=== PATIENT | male | born 1950 | race Caucasian/White ===

== ENCOUNTER → 2018-12-17 | Outpatient (CLI) | payer MEDICARE, BC, OTHER, SELFPAY | PROVIDERS: PCP Family Medicine; Referring Provider Internal Medicine Endocrinology, Diabetes & Metabolism; Visit Provider Family Medicine | DX: E78.5 Hyperlipidemia, unspecified (principal); E11.65 Type 2 diabetes mellitus with hyperglycemia; I10 Essential (primary) hypertension; R35.1 Nocturia | CPT/HCPCS: 36415; 80048; 80061; 80076; 81001; 82043; 82570; 84153; 84443 ==

== ENCOUNTER 2019-06-15 15:02 | Outpatient (CLI) | payer MEDICARE, BC, OTHER, SELFPAY ==
--- NOTE | ~2019-06-15 | CT_ITS ---
EXAMINATION: CT brain wo con DATE: 06/15/2019 15:24 INDICATION: Dizziness and giddiness TECHNIQUE: Computed tomography (CT) of the head was performed without intravenous contrast. The dose- length product was 605.33 mGy-cm. The mA was adjusted according to patient size. Iterative reconstruc tion technique was employed. COMPARISON: None FINDINGS: No acute intracranial hemorrhage, infarction, mass or mass effect. No ventriculomegaly or m idline shift. Basilar cisterns are patent. Paranasal sinuses and mastoids are pneumatized. No depress ed skull fractures. Midline sagittal images are unremarkable. There is intracranial atherosclerosis. IMPRESSION: 1. No acute intracranial abnormality. Reviewed, dictated and finalized at location A.
== END 2019-06-15 15:03 | disposition home or self-care (01) ==
LOC: ANHIMG 15:07
PROVIDERS: PCP Family Medicine; Visit Provider Family Medicine
DX: R42 Dizziness and giddiness (principal); G44.52 New daily persistent headache (NDPH)
CPT/HCPCS: 70450

== ENCOUNTER 2020-01-18 06:54 | Outpatient (NON) | payer MEDICARE, BC, OTHER, SELFPAY ==
[2020-01-18 23:36] LABS: SARS-CoV-2 RNA PCR Negative
== END 2020-01-18 06:55 ==
LOC: ANHCOVIDDT 07:00
PROVIDERS: PCP Family Medicine; Visit Provider Family Medicine
DX: R51.9 Headache, unspecified (principal); Z20.828 Contact with and (suspected) exposure to other viral communicable diseases
CPT/HCPCS: 87635; C9803; U0003

== ENCOUNTER → 2020-03-13 14:42 | Outpatient (CLI) | payer MEDICARE, BC, OTHER, SELFPAY ==
--- NOTE | ~2020-03-13 | XR_ITS ---
XR tibia fibula RT 2V DATE: 03/13/2020 14:57 INDICATION: Cellulitis. Sore on anterior lower leg. TECHNIQUE: AP and lateral views COMPARISON: None FINDINGS: There is soft tissue swelling along the anterior aspect of the right lower leg but no under lying fracture, dislocation, periosteal reaction or bone destruction throughout the tibia or fibula. Arterial calcifications are noted. IMPRESSION: Anterior lower leg soft tissue swelling; no periosteal reaction or bone destruction Reviewed, dictated and finalized at location A. GENCY ROOM RN
== END ==
PROVIDERS: PCP Family Medicine; Visit Provider Family Medicine
DX: L03.90 Cellulitis, unspecified (principal); M79.89 Other specified soft tissue disorders
CPT/HCPCS: 73590

== ENCOUNTER 2020-04-11 09:56 | Outpatient (CLI) | payer MEDICARE, BC, OTHER, SELFPAY ==
[2020-04-11 10:33] LABS: Potassium 4.2 mmol/L (3.4-5.0)
[2020-04-11 10:58] LABS: Anion Gap 5 mmol/L (8-16); Blood Urea Nitrogen 15 mg/dL (9-20); Calcium 8.9 mg/dL (8.4-10.2); Carbon Dioxide 32 mmol/L (22-30); Chloride 101 mmol/L (98-107); Estimated Glomerular Filt Rate 60; Glucose 238 mg/dL (75-110); Sodium 138 mmol/L (137-145)
== END 2020-04-11 09:57 | disposition home or self-care (01) ==
LOC: ANHSURGERY 10:02
PROVIDERS: Anesthesiology; PCP Family Medicine; Visit Provider Plastic Surgery
DX: E11.65 Type 2 diabetes mellitus with hyperglycemia (principal); Z79.4 Long term (current) use of insulin
CPT/HCPCS: 36415; 80048

== ENCOUNTER → 2020-04-15 01:27 | Outpatient (CLI) | payer MEDICARE, BC, OTHER, SELFPAY ==
[2020-04-15 23:34] LABS: SARS-CoV-2 RNA PCR Negative
== END ==
PROVIDERS: PCP Family Medicine; Visit Provider Plastic Surgery
DX: Z01.812 Encounter for preprocedural laboratory examination (principal); Z20.822 Contact with and (suspected) exposure to COVID-19
CPT/HCPCS: C9803; U0003; U0005

== ENCOUNTER 2020-04-19 00:58 | Day surgery (SDC) | payer MEDICARE, BC, OTHER, SELFPAY ==
[2020-04-10 13:11] VITALS: BMI 28.6
--- NOTE | 2020-04-18 13:41 | WPDANESEPPF ---
Anes - Initial Pre Proc Eval Procedure: Operation Date: 04/19/20 07:30 Proposed Procedures p Excision Squamous Cell Carcinoma Right Anterior Leg with Frozen Section, Possible Full Thickness Skin Graft - Rufino Ingram MD Date/Time: 04/18/20 13:41 Surgeon: Rufino Ingram MD Pre Op Diagnosis: sq cell CA right anterior leg Patient Data Age: 69 Gender: M Height: 5 ft 9 in Weight: 88 kg Allergies Allergy/AdvReac Type Severity Reaction Status Date / Time exenatide [From Bydureon] Allergy Nausea and Verified 04/10/20 12:41 Vomiting Home Medications Medication Instructions Recorded Confirmed Type empagliflozin 10 mg tablet 25 mg PO QAM 12/18/18 04/10/20 History magnesium oxide 400 mg (241.3 mg 400 mg PO DAILY 12/18/18 04/10/20 History magnesium) tablet blood sugar diagnostic #10 each 04/22/19 03/13/20 History insulin aspart U-100 100 unit/mL 15 unit SUB-Q TID 04/22/19 04/10/20 History (3 mL) subcutaneous pen insulin degludec 100 unit/mL (3 45 unit SUB-Q HS ml 04/22/19 04/10/20 History mL) subcutaneous pen famotidine 20 mg tablet 20 mg PO BID #60 tablet 06/28/19 04/10/20 Rx nitroglycerin 0.4 mg sublingual 0.4 mg SUBLINGUAL Q5M PRN #60 10/20/19 04/10/20 Rx tablet tablet amitriptyline 25 mg tablet 25 mg PO . q.h.s. #90 tablet 10/27/19 04/10/20 Rx pen needle, diabetic 33 gauge x #100 each 11/17/19 03/13/20 Rx 1/4 bupropion HCl 300 mg 24 hr tablet, 300 mg PO QAM #90 tablet 12/23/19 04/10/20 Rx extended release propranolol 120 mg 120 mg PO DAILY #90 cap 02/02/20 04/10/20 Rx capsule,extended release 24 hr escitalopram oxalate 10 mg tablet 5 mg PO DAILY #90 tablet 03/01/20 04/10/20 Rx clopidogrel 75 mg tablet See Rx Instructions .ROUTE 03/23/20 04/10/20 Rx .COMPLEX #90 tablet aspirin [Adult Low Dose Aspirin] 81 mg PO DAILY 04/10/20 04/10/20 History atorvastatin 40 mg PO DAILY 04/10/20 04/10/20 History cholecalciferol (vitamin D3) 25 mcg PO DAILY 04/10/20 04/10/20 History clonazepam 0.5 mg PO HS 04/10/20 04/10/20 History cyanocobalamin (vitamin B-12) 1,000 mcg PO DAILY 04/10/20 04/10/20 History glipizide 10 mg PO QAM 04/10/20 04/10/20 History lisinopril 2.5 mg PO QPM 04/10/20 04/10/20 History PMFSH Past Medical History Medical History (Updated 03/13/20 @ 14:44 by Marlon Last MD) Acute pain of right shoulder Anxiety disorder, unspecified Atherosclerotic heart disease of [place] coronary artery without angina pectoris Cellulitis Chronic low back pain without sciatica Chronic rhinitis Colon polyps Controlled diabetes mellitus with hyperglycemia, with long-term current use of insulin Diabetic peripheral neuropathy Essential (primary) hypertension Family history of malignant neoplasm of colon in first degree relative diagnosed when younger than 60 years of age Gastro-esophageal reflux disease without esophagitis Headache Insomnia Major depressive disorder, single episode, unspecified Medicare annual wellness visit, subsequent Mixed hyperlipidemia Nocturia Osteoarthritis involving multiple joints on both sides of body Pigmented skin lesion of suspected malignant nature Tremor Family History Family History Mother Diabetes mellitus Family history of malignant neoplasm Father Patient's father is Family history of cardiovascular disease Social History Social History Smoking packs per day: 1 Smoking cigarettes per day: 20.0 Years smoked: 10 Smoking pack-years: 10.00 Smoking status: Former smoker Tobacco type: cigarettes Smoking end date: 03/08/02 Alcohol intake: current Substance use: never Substance use type: does not use Spiritual care concerns: No Anes - Eval Final PreProcedure Day of Procedure 04/18/20 13:41 Informed Consent: The patient's anesthetic plan and its attendant risks and benefits were discussed with the nancy
--- NOTE | 2020-04-18 15:39 | WPDANESEPPF ---
Anes - Initial Pre Proc Eval Procedure: Operation Date: 04/19/20 07:30 Proposed Procedures p Excision Squamous Cell Carcinoma Right Anterior Leg with Frozen Section, Possible Full Thickness Skin Graft - Rufino Ingram MD Date/Time: 04/18/20 15:39 Surgeon: Rufino Ingram MD Pre Op Diagnosis: sq cell CA right anterior leg Patient Data Age: 69 Gender: M Height: 1.75 m Weight: 88 kg Allergies Allergy/AdvReac Type Severity Reaction Status Date / Time exenatide [From Bydureon] Allergy Nausea and Verified 04/10/20 12:41 Vomiting Home Medications Medication Instructions Recorded Confirmed Type empagliflozin 10 mg tablet 25 mg PO QAM 12/18/18 04/10/20 History magnesium oxide 400 mg (241.3 mg 400 mg PO DAILY 12/18/18 04/10/20 History magnesium) tablet blood sugar diagnostic #10 each 04/22/19 03/13/20 History insulin aspart U-100 100 unit/mL 15 unit SUB-Q TID 04/22/19 04/10/20 History (3 mL) subcutaneous pen insulin degludec 100 unit/mL (3 45 unit SUB-Q HS ml 04/22/19 04/10/20 History mL) subcutaneous pen famotidine 20 mg tablet 20 mg PO BID #60 tablet 06/28/19 04/10/20 Rx nitroglycerin 0.4 mg sublingual 0.4 mg SUBLINGUAL Q5M PRN #60 10/20/19 04/10/20 Rx tablet tablet amitriptyline 25 mg tablet 25 mg PO . q.h.s. #90 tablet 10/27/19 04/10/20 Rx pen needle, diabetic 33 gauge x #100 each 11/17/19 03/13/20 Rx 1/4 bupropion HCl 300 mg 24 hr tablet, 300 mg PO QAM #90 tablet 12/23/19 04/10/20 Rx extended release propranolol 120 mg 120 mg PO DAILY #90 cap 02/02/20 04/10/20 Rx capsule,extended release 24 hr escitalopram oxalate 10 mg tablet 5 mg PO DAILY #90 tablet 03/01/20 04/10/20 Rx clopidogrel 75 mg tablet See Rx Instructions .ROUTE 03/23/20 04/10/20 Rx .COMPLEX #90 tablet aspirin [Adult Low Dose Aspirin] 81 mg PO DAILY 04/10/20 04/10/20 History atorvastatin 40 mg PO DAILY 04/10/20 04/10/20 History cholecalciferol (vitamin D3) 25 mcg PO DAILY 04/10/20 04/10/20 History clonazepam 0.5 mg PO HS 04/10/20 04/10/20 History cyanocobalamin (vitamin B-12) 1,000 mcg PO DAILY 04/10/20 04/10/20 History glipizide 10 mg PO QAM 04/10/20 04/10/20 History lisinopril 2.5 mg PO QPM 04/10/20 04/10/20 History PMF Past Medical History Medical History (Updated 04/18/20 @ 15:41 by Antonio Tellez MD) Acute pain of right shoulder Anxiety disorder, unspecified Atherosclerotic heart disease of [place] coronary artery without angina pectoris CAD (coronary artery disease) Cellulitis Chronic low back pain without sciatica Chronic rhinitis Colon polyps Controlled diabetes mellitus with hyperglycemia, with long-term current use of insulin Diabetic peripheral neuropathy Essential (primary) hypertension Family history of malignant neoplasm of colon in first degree relative diagnosed when younger than 60 years of age Gastro-esophageal reflux disease without esophagitis Headache Insomnia Major depressive disorder, single episode, unspecified Medicare annual wellness visit, subsequent Mixed hyperlipidemia Nocturia Osteoarthritis involving multiple joints on both sides of body Pigmented skin lesion of suspected malignant nature Tremor Surgical History Surgical History (Updated 04/18/20 @ 15:41 by Antonio Tellez MD) History of coronary artery stent placement S/P CABG (coronary artery bypass graft) Family History Family History Mother Diabetes mellitus Family history of malignant neoplasm Father Patient's father is Family history of cardiovascular disease Social History Social History Smoking packs per day: 1 Smoking cigarettes per day: 20.0 Years smoked: 10 Smoking pack-years: 10.00 Smoking status: Former smoker Tobacco type: cigarettes Smoking end date: 03/08/02 Alcohol intake: current Substance use: never Substance use type: does not use Spiritual care
--- NOTE | 2020-04-19 06:36 | WPDANESEPPF ---
Anes - Initial Pre Proc Eval Procedure: Operation Date: 04/19/20 07:30 Proposed Procedures p Excision Squamous Cell Carcinoma Right Anterior Leg with Frozen Section, Possible Full Thickness Skin Graft - Rufino Ingram MD Date/Time: 04/19/20 06:36 Surgeon: Rufino Ingram MD Pre Op Diagnosis: sq cell CA right anterior leg Patient Data Age: 69 Gender: M Height: 5 ft 9 in Weight: 88 kg Allergies Allergy/AdvReac Type Severity Reaction Status Date / Time exenatide [From Bydureon] Allergy Nausea and Verified 04/10/20 12:41 Vomiting Home Medications Medication Instructions Recorded Confirmed Type empagliflozin 10 mg tablet 25 mg PO QAM 12/18/18 04/10/20 History magnesium oxide 400 mg (241.3 mg 400 mg PO DAILY 12/18/18 04/10/20 History magnesium) tablet blood sugar diagnostic #10 each 04/22/19 03/13/20 History insulin aspart U-100 100 unit/mL 15 unit SUB-Q TID 04/22/19 04/10/20 History (3 mL) subcutaneous pen insulin degludec 100 unit/mL (3 45 unit SUB-Q HS ml 04/22/19 04/10/20 History mL) subcutaneous pen famotidine 20 mg tablet 20 mg PO BID #60 tablet 06/28/19 04/10/20 Rx nitroglycerin 0.4 mg sublingual 0.4 mg SUBLINGUAL Q5M PRN #60 10/20/19 04/10/20 Rx tablet tablet amitriptyline 25 mg tablet 25 mg PO . q.h.s. #90 tablet 10/27/19 04/10/20 Rx pen needle, diabetic 33 gauge x #100 each 11/17/19 03/13/20 Rx 1/4 bupropion HCl 300 mg 24 hr tablet, 300 mg PO QAM #90 tablet 12/23/19 04/10/20 Rx extended release propranolol 120 mg 120 mg PO DAILY #90 cap 02/02/20 04/10/20 Rx capsule,extended release 24 hr escitalopram oxalate 10 mg tablet 5 mg PO DAILY #90 tablet 03/01/20 04/10/20 Rx clopidogrel 75 mg tablet See Rx Instructions .ROUTE 03/23/20 04/10/20 Rx .COMPLEX #90 tablet aspirin [Adult Low Dose Aspirin] 81 mg PO DAILY 04/10/20 04/10/20 History atorvastatin 40 mg PO DAILY 04/10/20 04/10/20 History cholecalciferol (vitamin D3) 25 mcg PO DAILY 04/10/20 04/10/20 History clonazepam 0.5 mg PO HS 04/10/20 04/10/20 History cyanocobalamin (vitamin B-12) 1,000 mcg PO DAILY 04/10/20 04/10/20 History glipizide 10 mg PO QAM 04/10/20 04/10/20 History lisinopril 2.5 mg PO QPM 04/10/20 04/10/20 History Patient hx anesthesia problems: none Family hx anesthesia problems: none PMFSH Past Medical History Medical History Acute pain of right shoulder Anxiety disorder, unspecified Atherosclerotic heart disease of [place] coronary artery without angina pectoris CAD (coronary artery disease) Cellulitis Chronic low back pain without sciatica Chronic rhinitis Colon polyps Controlled diabetes mellitus with hyperglycemia, with long-term current use of insulin Diabetic peripheral neuropathy Essential (primary) hypertension Family history of malignant neoplasm of colon in first degree relative diagnosed when younger than 60 years of age Gastro-esophageal reflux disease without esophagitis Headache Insomnia Major depressive disorder, single episode, unspecified Medicare annual wellness visit, subsequent Mixed hyperlipidemia Nocturia Osteoarthritis involving multiple joints on both sides of body Pigmented skin lesion of suspected malignant nature Tremor Surgical History Surgical History History of coronary artery stent placement S/P CABG (coronary artery bypass graft) Family History Family History Mother Diabetes mellitus Family history of malignant neoplasm Father Patient's father is Family history of cardiovascular disease Social History Social History Smoking packs per day: 1 Smoking cigarettes per day: 20.0 Years smoked: 10 Smoking pack-years: 10.00 Smoking status: Never smoker Tobacco type: cigarettes Smoking end date: 02/17/02 Alcohol int
[2020-04-19 07:01] LABS: Glucose Point of Care 156 (65-105)
--- NOTE | 2020-04-19 07:11 | WPDHPUPDATE1 ---
History and Physical Update Update Date/Time: 04/19/20 07:11 History and Physical has been reviewed, including an updated exam of the patient. There are NO changes in the patient's condition. Risks, benefits, and alternatives have been discussed and questions answered. Patient agrees to proceed with procedure.
[2020-04-19] MEDS: LACTATED RINGERS 1,000 ML 30 ML IV CONT (07:20)
[2020-04-19 07:38] VITALS: BP 100/66; PULSE 71; RESP 20; TEMP 36.4; O2SAT 97
[2020-04-19] MEDS: LIDO 1%/EPINEPHRINE 1:100,000 50 ML VIAL INFILTRATE (07:43)
--- NOTE | 2020-04-19 08:25 | SUR.OPER ---
Eb l=1ml
[2020-04-19 08:28] VITALS: BP 111/60; PULSE 94; RESP 15; O2SAT 94
[2020-04-19 08:49] LABS: Glucose Point of Care 154 (65-105)
[2020-04-19 08:50] VITALS: BP 106/60; PULSE 63; RESP 20
--- NOTE | 2020-04-19 08:52 | PM.OP ---
Procedure Note - Brief Procedure Note - Brief Date of procedure: 04/19/20 Pre-op diagnosis: sq cell CA right anterior leg Post-op diagnosis: same Procedure performed: 2 cm excision of SCCA right anterior leg with intermediate repair 6 cm. Anesthesia: GLMA Surgeon: Rufino Ingram MD Estimated blood loss (mL): 1 Drains: No Packing: No Pathology: yes Complications: No immediate complications Condition: stable Disposition: same day
--- NOTE | 2020-04-19 08:53 | PM.PROC ---
Procedure Note - Detailed Date of procedure: 04/19/20 Pre-op diagnosis: sq cell CA right anterior leg Post-op diagnosis: same Procedure performed: 2 cm excision of squamous cell carcinoma of the right anterior leg with frozen section and intermediate repair 6 cm Description of procedure: The site on the patient's leg was marked in the holding area. He was taken to the operating room and placed supine on the operating table. A time-out was held and confirmed. He was given sedation anesthetic. The right lower extremity was prepped and draped in usual fashion including the thigh. The site on the leg was marked for excision and locally infiltrated with 1% lidocaine with epinephrine. No tourniquet was utilized. The excision was carried out and the specimen sent to pathology marked at the superior side for 12 o'clock. The pathologist confirmed the diagnosis and reports margins are free. The wound margins were undermined approximately a cm all sides. The wound was closed without difficulty using 3-0 intradermal Vicryl sutures and 5 0 nylon in the skin. Standing cones removed both ends. Small bandage was applied. He is being discharged with instructions in wound care and follow-up a prescription for hydrocodone 5/325 5 was sent to his pharmacy. Surgeon: Rufino Ingram MD
[2020-04-19 09:20] VITALS: BP 106/61; PULSE 59; RESP 20
[2020-04-19 09:45] VITALS: BP 106/61; PULSE 59; RESP 20
== END 2020-04-19 10:10 | disposition home or self-care (01) ==
PROVIDERS: PCP Family Medicine; Visit Provider Plastic Surgery
PROC: (CPT 11602; principal; 2020-04-19 07:30)
DX: C44.722 Squamous cell carcinoma of skin of right lower limb, including hip (principal); I25.10 Atherosclerotic heart disease of native coronary artery without angina pectoris; E11.42 Type 2 diabetes mellitus with diabetic polyneuropathy; K21.9 Gastro-esophageal reflux disease without esophagitis; F41.8 Other specified anxiety disorders; E78.2 Mixed hyperlipidemia; M89.49 Other hypertrophic osteoarthropathy, multiple sites; Z79.4 Long term (current) use of insulin; Z79.82 Long term (current) use of aspirin; Z79.02 Long term (current) use of antithrombotics/antiplatelets; Z95.1 Presence of aortocoronary bypass graft; Z95.5 Presence of coronary angioplasty implant and graft; Z87.891 Personal history of nicotine dependence
CPT/HCPCS: 11602; 12032; 82948; 88305; 88331; 88332; A9270; J2704; J3010; J7120

== ENCOUNTER 2020-08-30 12:00 | Outpatient (CLI) | payer MEDICARE, BC, OTHER, SELFPAY ==
[2020-08-30 13:19] LABS: Prostate Specific Antigen 0.5 ng/mL (< OR = 4.0)
== END 2020-08-30 12:01 | disposition home or self-care (01) ==
LOC: ANHLAB 12:04
PROVIDERS: PCP Family Medicine; Visit Provider Family Medicine
DX: R35.1 Nocturia (principal)
CPT/HCPCS: 36415; 84153

== ENCOUNTER → 2020-11-03 08:18 | Outpatient (CLI) | payer MEDICARE, BC, OTHER, SELFPAY ==
[2020-11-03 19:38] LABS: SARS-CoV-2 RNA PCR Negative
== END ==
PROVIDERS: PCP Family Medicine; Visit Provider Family Medicine
DX: R68.89 Other general symptoms and signs (principal); Z20.822 Contact with and (suspected) exposure to COVID-19
CPT/HCPCS: C9803; U0003; U0005

== ENCOUNTER → 2022-05-29 12:09 | Outpatient (CLI) | payer MEDICARE, BC, OTHER, SELFPAY ==
--- NOTE | ~2022-05-29 | XR_ITS ---
XR hip RT 2V w AP pelvis 05/29/2022 12:34 Indication: Hip pain. Procedure: AP pelvis and 3 views right hip Comparison: No prior studies for comparison. Findings: There is osteoarthritis of the hips. Osteopenia. Sacral foramen are symmetric. No significa nt soft tissue abnormality. Partially visualized spondylosis of the lower lumbar spine. No acute fracture or traumatic malalignme nt. Impression: 1: Mild-moderate bilateral osteoarthritis of the hips. Reviewed, dictated and finalized at location B. Impression: 1: Mild-moderate bilateral osteoarthritis of the hips.
--- NOTE | ~2022-05-29 | XR_ITS ---
XR hand BI arthritis min 3V DATE: 05/29/2022 12:34 INDICATION: Primary osteoarthritis, right hand TECHNIQUE: 3 views COMPARISON: None FINDINGS: Right hand: There is polyarticular osteoarthritis, involving the first carpometacarpal joint, multipl e interphalangeal joints, with mild involvement of the second and third metacarpophalangeal joints as well. No fracture, dislocation, periosteal reaction or bone destruction or chondrocalcinosis is detected. Left hand: There is polyarticular osteoarthritis involving the first carpometacarpal and multiple int erphalangeal joints, with mild involvement of the second and third metacarpophalangeal joints as well . No fracture, dislocation, periosteal reaction or bone destruction or erosive change or chondrocalcino sis is detected. IMPRESSION: Bilateral polyarticular osteoarthritis Reviewed, dictated and finalized at location A.
== END ==
PROVIDERS: PCP Family Medicine; Visit Provider Family Medicine
DX: M25.551 Pain in right hip (principal); M19.042 Primary osteoarthritis, left hand; M19.041 Primary osteoarthritis, right hand; M16.0 Bilateral primary osteoarthritis of hip
CPT/HCPCS: 73130; 73502

== ENCOUNTER 2023-05-21 08:07 | Outpatient (CLI) | payer MEDICARE, BC, OTHER, SELFPAY ==
[2023-05-21 12:17] LABS: Basophils Absolute Auto 0.1 K/mm3 (0.0-0.1); Hematocrit 51.9 % (42.0-52.0); Hemoglobin 16.9 g/dL (14.0-18.0); Immature Granulocyte Absolute 0.03 K/mm3 (0.00-0.031); Immature Granulocyte Percent A 0.4 % (0-0.5); Lymphocytes Absolute Auto 2.36 K/mm3 (0.9-3.2); Lymphocytes Percent Auto 30.1 % (18.3-44.2); Mean Corpuscular HGB Conc 32.6 g/dl (32-36); Mean Corpuscular Hemoglobin 30.8 pg (26-34); Mean Corpuscular Volume 94.7 fl (80-100); Mean Platelet Volume 11.7 fl (7.4-10.4); Monocytes Absolute Auto 0.8 K/mm3 (0.1-0.6); Monocytes Percent Auto 9.7 % (2.6-8.5); Neutrophils Absolute Auto 4.6 K/mm3 (1.3-6.7); Neutrophils Percent Auto 58.8 % (45.5-73.1); Platelet Count Result 202 k/mm3 (150-375); Red Blood Count 5.48 M/mm3 (4.6-6.20); Red Cell Distribution Width 12.8 % (11.5-14.5); White Blood Count 7.8 K/mm3 (4.5-10.0)
[2023-05-21 12:36] LABS: Appearance Urine Clear (Clear); Bacteria Urine None Seen /hpf; Bilirubin Urine Negative (Negative); Blood Urine Trace (Negative); Color Urine Yellow (Yellow); Glucose Urine UA 3+ mg/dL (Negative); Ketones Urine Negative (Negative); Leukocyte Esterase Ur Negative LEU/UL (Negative); Nitrate Urine Negative (Negative); Non Pathogenic Casts 0-2; Protein Urine Negative (Negative); RBC Urine 0-2 /hpf (0-2); Squamous Epithelial Cell Urine None Seen /hpf (Few); Urobilinogen Urine 0.2 mg/dL (<2.0); WBC Urine 0-5 /hpf (0-3)
[2023-05-21 12:39] LABS: Specific Grav Ur 1.032 (1.001-1.035)
[2023-05-21 12:40] LABS: Add Urine Microscopic? YES
[2023-05-21 22:18] LABS: Alanine Aminotransferase 18 U/L (6-50); Alkaline Phosphatase 74 U/L (38-126); Anion Gap 4 mmol/L (4-12); Aspartate Amino Transferase 55 U/L (17-59); Bilirubin,Total 2.1 mg/dL (0.2-1.3); Blood Urea Nitrogen 23 mg/dL (9-20); Calcium 9.5 mg/dL (8.4-10.2); Carbon Dioxide 30 mmol/L (22-30); Chloride 105 mmol/L (98-107); Cholesterol 132 mg/dL (0-200); Estimated Glomerular Filt Rate 54; Glucose 127 mg/dL (65-110); HDL Direct 35 mg/dL; Phosphorus 3.4 mg/dL (2.5-4.5); Potassium 4.5 mmol/L (3.4-5.0); Sodium 139 mmol/L (137-145); Triglycerides 196 mg/dL (<150)
[2023-05-21 22:24] LABS: Iron 96 ug/dL (49-181)
[2023-05-21 22:29] LABS: LDL Cholesterol Direct 69 mg/dL
[2023-05-21 22:34] LABS: Percent Iron Saturation 32 % (20-50)
[2023-05-21 23:24] LABS: Folic Acid 8.7 ng/mL (2.76->20)
== END 2023-05-21 08:08 | disposition home or self-care (01) ==
PROVIDERS: PCP Family Medicine; Visit Provider Family Medicine
DX: E11.42 Type 2 diabetes mellitus with diabetic polyneuropathy (principal); E78.2 Mixed hyperlipidemia; I10 Essential (primary) hypertension; K63.5 Polyp of colon; G25.81 Restless legs syndrome
CPT/HCPCS: 36415; 80053; 80061; 81001; 82607; 82728; 82746; 83540; 83550; 84100; 85025

== ENCOUNTER 2023-07-01 10:26 | Outpatient (CLI) | payer MEDICARE, BC, OTHER, SELFPAY ==
--- NOTE | ~2023-07-01 | XR_ITS ---
Lumbosacral Spine: AP, oblique, and lateral views Clinical History: Pain Findings: The normal lordotic curve is maintained. No fracture seen. There is 6 mm anterolisthesis of L4 over L5. Intervertebral disc spaces are preserved. There is severe facet arthropathy throughout t he lumbar spine. The sacroiliac joints are normally outlined. Impression: 6 mm anterolisthesis of L4 over L5. Severe facet arthropathy throughout the lumbar spine. Reviewed, dictated and finalized at location M. Impression: 6 mm anterolisthesis of L4 over L5. Severe facet arthropathy throughout the lumbar spine.
== END 2023-07-01 10:27 | disposition home or self-care (01) ==
LOC: ANHIMG 10:33
PROVIDERS: PCP Family Medicine; Visit Provider Family Medicine
DX: M54.50 Low back pain, unspecified (principal); G89.29 Other chronic pain
CPT/HCPCS: 72110

== ENCOUNTER 2023-08-06 08:16 | Outpatient (CLI) | payer MEDICARE, BC, OTHER, SELFPAY ==
[2023-08-06 13:08] LABS: Alanine Aminotransferase 20 U/L (6-50); Albumin Level 3.9 g/dL (3.5-5.1); Alkaline Phosphatase 77 U/L (38-126); Anion Gap 6 mmol/L (4-12); Aspartate Amino Transferase 101 U/L (17-59); Bilirubin,Total 2.4 mg/dL (0.2-1.3); Blood Urea Nitrogen 18 mg/dL (9-20); Calcium 8.6 mg/dL (8.4-10.2); Carbon Dioxide 30 mmol/L (22-30); Chloride 104 mmol/L (98-107); Cholesterol 120 mg/dL (0-200); Estimated Glomerular Filt Rate > 60; Glucose 94 mg/dL (65-110); HDL Direct 35 mg/dL; Potassium 3.8 mmol/L (3.4-5.0); Sodium 140 mmol/L (137-145); Triglycerides 141 mg/dL (<150)
[2023-08-06 13:19] LABS: LDL Cholesterol Direct 65 mg/dL
== END 2023-08-06 08:17 | disposition home or self-care (01) ==
PROVIDERS: PCP Family Medicine
DX: E78.2 Mixed hyperlipidemia (principal); I10 Essential (primary) hypertension; I25.10 Atherosclerotic heart disease of native coronary artery without angina pectoris; I34.0 Nonrheumatic mitral (valve) insufficiency; I35.1 Nonrheumatic aortic (valve) insufficiency; I77.810 Thoracic aortic ectasia; R00.2 Palpitations; R55 Syncope and collapse
CPT/HCPCS: 36415; 80053; 80061

== ENCOUNTER 2023-10-16 08:34 | Outpatient (CLI) | payer MEDICARE, BC, OTHER, SELFPAY ==
--- NOTE | ~2023-10-16 | XR_ITS ---
AP and lateral views of the left hip Clinical history: Pain Findings: No acute fracture or dislocation is seen. Osseous alignment is anatomic. Bilateral hip and SI joint spaces are preserved. Soft tissues are unremarkable. Impression: No significant abnormality is seen. Reviewed, dictated and finalized at location . Impression: No significant abnormality is seen.
== END 2023-10-16 08:35 | disposition home or self-care (01) ==
PROVIDERS: PCP Family Medicine; Visit Provider Family Medicine
DX: M25.552 Pain in left hip (principal)
CPT/HCPCS: 73502

== ENCOUNTER 2024-01-14 08:58 | Outpatient (CLI) | payer MEDICARE, BC, OTHER, SELFPAY ==
[2024-01-14 20:33] LABS: Hematocrit 51.5 % (42.0-52.0); Hemoglobin 16.7 g/dL (14.0-18.0); Mean Corpuscular HGB Conc 32.4 g/dl (32-36); Mean Corpuscular Hemoglobin 30.4 pg (26-34); Mean Corpuscular Volume 93.8 fl (80-100); Mean Platelet Volume 10.8 fl (7.4-10.4); Platelet Count Result 236 k/mm3 (150-375); Red Blood Count 5.49 M/mm3 (4.6-6.20); Red Cell Distribution Width 12.9 % (11.5-14.5); White Blood Count 7.6 K/mm3 (4.5-10.0)
[2024-01-14 20:42] LABS: Add Urine Microscopic? YES; Appearance Urine Clear (Clear); Bacteria Urine None Seen /hpf; Bilirubin Urine Negative (Negative); Blood Urine Non-Hemolyzed Trace (Negative); Color Urine Yellow (Yellow); Glucose Urine UA 3+ mg/dL (Negative); Ketones Urine Negative (Negative); Leukocyte Esterase Ur Negative LEU/UL (Negative); Nitrate Urine Negative (Negative); Non Pathogenic Casts 0-2; Protein Urine Trace mg/dL (Negative); Specific Grav Ur 1.031 (1.001-1.035); Squamous Epithelial Cell Urine None Seen /hpf (Few); Urobilinogen Urine 0.2 mg/dL (<2.0); WBC Urine 0-5 /hpf (0-3)
[2024-01-14 21:01] LABS: Eosinophils Absolute Manual 0.22 K/mm3 (0.02-0.50); Eosinophils Percent Manual 3 % (0-4); Lymphocytes Absolute Manual 3.57 K/mm3 (1.1-4.5); Monocytes Percent Manual 4 % (3-9); Neutrophils Percent Manual 46 % (46-73); Platelet Estimate Adequate (Adequate); Schistocytes None Seen; Smudge Cells FEW; Total Cells Counted 100
[2024-01-14 21:04] LABS: Alanine Aminotransferase 18 U/L (6-50); Albumin Level 3.8 g/dL (3.5-5.1); Alkaline Phosphatase 77 U/L (38-126); Anion Gap 5 mmol/L (4-12); Aspartate Amino Transferase 44 U/L (17-59); Blood Urea Nitrogen 18 mg/dL (9-20); Calcium 8.6 mg/dL (8.4-10.2); Carbon Dioxide 33 mmol/L (22-30); Chloride 101 mmol/L (98-107); Cholesterol 135 mg/dL (0-200); Estimated Glomerular Filt Rate 59; Glucose 122 mg/dL (65-110); HDL Direct 36 mg/dL; Potassium 4.6 mmol/L (3.4-5.0); Sodium 139 mmol/L (137-145); Triglycerides 146 mg/dL (<150)
[2024-01-14 21:18] LABS: Iron 86 ug/dL (49-181)
[2024-01-14 21:24] LABS: LDL Cholesterol Direct 67 mg/dL
[2024-01-14 21:30] LABS: Percent Iron Saturation 29 % (20-50)
[2024-01-14 22:10] LABS: Folic Acid 8.5 ng/mL (2.76->20)
== END 2024-01-14 08:59 | disposition home or self-care (01) ==
LOC: ANHGOSHLAB 09:00
PROVIDERS: PCP Family Medicine; Visit Provider Family Medicine
DX: E11.42 Type 2 diabetes mellitus with diabetic polyneuropathy (principal); E78.2 Mixed hyperlipidemia; I10 Essential (primary) hypertension; G25.81 Restless legs syndrome; K63.5 Polyp of colon
CPT/HCPCS: 36415; 80048; 80061; 80076; 81001; 82607; 82728; 82746; 83540; 83550; 85025

== ENCOUNTER 2024-02-06 08:37 | Outpatient (CLI) | payer MEDICARE, BC, OTHER, SELFPAY ==
[2024-02-06 18:12] LABS: Hematocrit 52.1 % (42.0-52.0); Hemoglobin 16.9 g/dL (14.0-18.0); Mean Corpuscular HGB Conc 32.4 g/dl (32-36); Mean Corpuscular Hemoglobin 30.5 pg (26-34); Mean Corpuscular Volume 93.9 fl (80-100); Mean Platelet Volume 11.1 fl (7.4-10.4); Platelet Count Result 221 k/mm3 (150-375); Red Blood Count 5.55 M/mm3 (4.6-6.20); Red Cell Distribution Width 13.2 % (11.5-14.5); White Blood Count 7.3 K/mm3 (4.5-10.0)
[2024-02-06 18:16] LABS: Add Urine Microscopic? YES; Appearance Urine Clear (Clear); Bacteria Urine None Seen /hpf; Bilirubin Urine Negative (Negative); Blood Urine 1+ (Negative); Color Urine Yellow (Yellow); Glucose Urine UA 3+ mg/dL (Negative); Ketones Urine Negative (Negative); Leukocyte Esterase Ur Negative LEU/UL (Negative); Nitrate Urine Negative (Negative); Non Pathogenic Casts 0-2; Protein Urine Trace mg/dL (Negative); RBC Urine 21-50 /hpf (0-2); Specific Grav Ur 1.035 (1.001-1.035); Squamous Epithelial Cell Urine None Seen /hpf (Few); Urobilinogen Urine 0.2 mg/dL (<2.0); WBC Urine 0-5 /hpf (0-3)
[2024-02-06 18:44] LABS: Basophils Absolute Manual 0.14 K/mm3 (0.0-0.1); Basophils Percent Manual 2 % (0-1); Eosinophils Absolute Manual 0.21 K/mm3 (0.02-0.50); Eosinophils Percent Manual 3 % (0-4); Lymphocytes Absolute Manual 2.92 K/mm3 (1.1-4.5); Monocytes Absolute Manual 0.65 K/mm3 (0.1-0.90); Monocytes Percent Manual 9 % (3-9); Neutrophils Percent Manual 46 % (46-73); Total Cells Counted 100
[2024-02-06 18:45] LABS: Anisocytosis 1+; Platelet Estimate Adequate (Adequate); Schistocytes None Seen; Smudge Cells PRESENT
== END 2024-02-06 08:38 | disposition home or self-care (01) ==
LOC: ANHGOSHLAB 08:40
PROVIDERS: PCP Family Medicine; Visit Provider Family Medicine
DX: D72.820 Lymphocytosis (symptomatic) (principal); R31.29 Other microscopic hematuria
CPT/HCPCS: 36415; 81001; 85025